=== PATIENT | male | born 1950 | race Caucasian/White ===

== ENCOUNTER 2016-07-04 06:05 | Day surgery (SDC) | payer BC ==
[2016-07-02 10:01] LABS: HEMATOCRIT 46.8 % (40.0-51.0); HEMOGLOBIN 15.9 g/dL (13.6-17.8)
[2016-07-02 10:11] LABS: BUN (BLOOD UREA NITROGEN) 14 MG/DL (6-23); CALCIUM, SERUM 9.4 MG/DL (8.5-10.4); CHLORIDE, SERUM 104 MMOL/L (96-112); CO2 (CARBON DIOXIDE) 32 MMOL/L (24-34); CREATININE 1.31 MG/DL (0.70-1.30); GFR AFRICAN AMERICAN 66 ML/MIN (>=60); GFR NON AFRICAN AMERICAN 57 ML/MIN (>=60); GLUCOSE, SERUM 107 MG/DL (60-99); POTASSIUM, SERUM 3.5 MMOL/L (3.5-5.3); SODIUM, SERUM 142 MMOL/L (135-148)
--- NOTE | ~2016-07-04 | OP ---
Record Of Operation [facility] [address] [place]. [address] NAME: CRYSTAL MARSH : 54 STATUS : REG [facility] PAT#: [id number] AGE: 66 ADM/REG DATE : 07/04/16 MR#: [id number] REPORT SERV DATE: 07/04/16 DICTATED BY: AJAY SIEGEL DATE: 07/04/16 REPORT STATUS : Draft TRANSCRIBED BY: MODL DATE: 07/04/16 DATE OF PROCEDURE: 07/04/2016 PREOPERATIVE DIAGNOSES: 1. Bilateral chronic frontal sinusitis. 2. Bilateral chronic ethmoid sinusitis. 3. Bilateral chronic sphenoid sinusitis. POSTOPERATIVE DIAGNOSES: 1. Bilateral chronic frontal sinusitis. 2. Bilateral chronic ethmoid sinusitis. 3. Bilateral chronic sphenoid sinusitis. PROCEDURES: 1. Bilateral endoscopic total ethmoidectomy. 2. Endoscopic frontal sinusotomy. 3. Bilateral endoscopic sphenoidotomy. SURGEON: Ajay Siegel M.D. ANESTHESIA: General. COMPLICATIONS: None. COUNTS: All counts were correct following the procedure. ESTIMATED BLOOD LOSS: 10 mL. PREOPERATIVE INFORMED CONSENT: We discussed the risks and benefits of the surgery including, but not limited to bleeding, infection, possible CSF leak, possible ocular injury including blindness, possible persistent sinus disease despite surgery, possible persistent headaches, and possible need for revision surgery, and consent is on the chart. DESCRIPTION OF PROCEDURE: The patient was brought to the operative suite, and placed on the operating room table in supine position. General endotracheal anesthesia was initiated without incident. The patient's head and neck were cleaned, prepped and draped in the usual sterile fashion. Following this, both side of the nose, the inferior middle turbinate, uncinate process were injected with 1% lidocaine with 1:100,000 epinephrine for hemostasis. Approximately 10 mL was used. Following this, starting on the left hand side of the nose, the nasofrontal duct was cannulated using the Acclarent transilluminated wire. Using transillumination technique, once the wire was in position, the balloon was advanced over the wire across the nasofrontal duct and dilated up to 10 atmospheres along the length of the nasofrontal duct. This was repeated on the right hand in a similar fashion. Starting on left on the side, the posterior ethmoids were entered through the basal lamella. There already had been a previous partial anterior ethmoidectomy. The posterior ethmoid air cells were marsupialized using straight and up-biting Kali-Cut forceps. Attention was taken to the Record Of Operation [address] [address] NAME: CRYSTAL MARSH : 54 STATUS : REG [facility] [place] PAT#: [id number] AGE: 66 ADM/REG DATE : 07/04/16 MR#: [id number] REPORT SERV DATE: 07/04/16 DICTATED BY: AJAY SIEGEL DATE: 07/04/16 REPORT STATUS : Draft TRANSCRIBED BY: JOHNY DATE: 07/04/16 right side of the nose, where in a similar fashion as described on the left, the remaining posterior ethmoid air cells were marsupialized. Then, using the Acclarent balloon, the both sphenoid sinus ostia were cannulated and the balloon was advanced over the wire and dilated up to 10 atmospheres. The patient was then awakened from anesthesia, taken to the recovery room in stable condition. NE/JOHNY Ajay Siegel M.D. / [id number] CC: Mallorie Iqbal M.D.
[~2016-07-04 06:05] MED LIST: 8 HOUR650 MG; ALLERGY SHOTS; AMOXIL500 MG PO; FLOMAX4 PO; LEVOTHYROXIN88 MCG PO; LIPITOR40 PO; MAX25 PO; VIT D 3; Z300 PO
== END 2016-07-04 23:59 | disposition home or self-care (01) ==
LOC: MSC 06:05
PROVIDERS: Otolaryngology
PROC: 09QS4ZZ Repair Right Frontal Sinus, Percutaneous Endoscopic Approach (ICD-10-PCS; 2016-07-04)
PROC: 099X4ZZ Drainage of Left Sphenoid Sinus, Percutaneous Endoscopic Approach (ICD-10-PCS; 2016-07-04)
PROC: 099W4ZZ Drainage of Right Sphenoid Sinus, Percutaneous Endoscopic Approach (ICD-10-PCS; 2016-07-04)
PROC: 09DV4ZZ Extraction of Left Ethmoid Sinus, Percutaneous Endoscopic Approach (ICD-10-PCS; principal; 2016-07-04 07:15)
PROC: 09DU4ZZ Extraction of Right Ethmoid Sinus, Percutaneous Endoscopic Approach (ICD-10-PCS; 2016-07-04 07:15)
PROC: 09QT4ZZ Repair Left Frontal Sinus, Percutaneous Endoscopic Approach (ICD-10-PCS; 2016-07-04 07:15)
DX: J32.1 Chronic frontal sinusitis (principal); J32.2 Chronic ethmoidal sinusitis; J32.3 Chronic sphenoidal sinusitis
CPT/HCPCS: 80048; 85014; 85018; 88305; 93005; A9270-GY; C1726; J0690; J0735; J2250; J2405; J2550; J2710; J3010